=== PATIENT | male | born 1965 | race Caucasian/White ===

== ENCOUNTER 2017-02-19 22:40 | Observation (INO) | payer BC ==
--- NOTE | ~2017-02-19 | HP ---
History And Physical [place] [id number] [facility] [place]. [address] NAME: OLGA MONTANO : 61 STATUS : DIS Lillie PAT#: [id number] AGE: 51 ADM/REG DATE : 02/19/17 MR#: [id number] REPORT SERV DATE: 02/20/17 DICTATED BY: CALI HELMS DATE: 02/20/17 REPORT STATUS : Draft TRANSCRIBED BY: KAVITHA DATE: 02/20/17 DATE OF ADMISSION: 02/19/2017 CHIEF COMPLAINT: Chest pain. HISTORY OF PRESENT ILLNESS: This is a pleasant 51-year-old white male with a history of hypertension, hyperlipidemia, and reflux. He reports that over the past month, he has been out and biking with his son and doing well with that. He reports on Thursday he felt tightness in his chest in the afternoon while at work and not doing any particular activity. He reports immediately prior to the tightness in the chest, he had eaten spicy food for lunch including jalapeno pepper sandwich. He reports he has GERD and therefore he knew immediately to take Tums. He reports that that is the symptom. He then went for a bike ride soon after and he had no symptoms during the ride. Later on in the evening though, he then redeveloped the tightness in his chest. He had to sleep on pillows to help the chest pain. This continued all yesterday and he took Tums, which improved the symptoms, but did not fully resolve them. After consultation with his , he decided to present to the emergency room for further evaluation. He reports that he was working very hard strenuous activity on the bike the other day and again had no symptoms. No dyspnea on exertion. No palpitations. No diaphoresis. No syncope, presyncope, paroxysmal nocturnal dyspnea, or orthopnea. He has felt well overnight and has no further chest pain at this present time and no symptoms. PAST MEDICAL HISTORY: 1. Hypertension. 2. Hyperlipidemia. 3. Reflux. SOCIAL HISTORY: He is . He works full-time. He denies any tobacco, alcohol, or illicit drugs. FAMILY HISTORY: Noncontributory for CAD. ALLERGIES: NO KNOWN ALLERGIES. MEDICATIONS: Home medication list reviewed and is as follows, 1. Chlorthalidone 25 mg p.o. daily. 2. Lisinopril 20 mg p.o. at bedtime. 3. Pravastatin 40 mg p.o. at bedtime. REVIEW OF SYSTEMS: The patient denies ever having a cardiac evaluation. He does routinely see a PCP and recently went in for his annual examination on 02/05/2017, at which time, total cholesterol was slightly elevated at 203, HDL 60, triglycerides 134, LDL 117. He does tell me that he is not diligent at regularly taking the pravastatin as he should. The patient denies ever having issues with hypokalemia, but reports that his mother routinely has hypokalemia for many years. As above per HPI, all other systems reviewed and negative. History And Physical [address] [place]. [address] NAME: OLGA MONTANO : 61 STATUS : DIS Lillie PAT#: [id number] AGE: 51 ADM/REG DATE : 02/19/17 MR#: [id number] REPORT SERV DATE: 02/20/17 DICTATED BY: CALI HELMS DATE: 02/20/17 REPORT STATUS : Draft TRANSCRIBED BY: KAVITHA DATE: 02/20/17 PHYSICAL EXAMINATION: VITAL SIGNS: Oxygen saturation 95% on room air, weight 81.64 kg, temperature 98.1, pulse 56, respiratory rate 18, blood pressure 114/67. GENERAL: Well developed, well nourished. In no apparent distress. HEENT: Head normocephalic. No xanthelasma. Sclera clear, anicteric. Moist mucous membranes without pallor. No lymphadenopathy. No deficits noted. NECK: Trachea midline. Supple. No thyromegaly, JVD, or bruits. RESPIRATORY: Unlabored respirations. Breath sounds clear bilaterally to posterior auscultation. No wheezes, rhonchi or crackles. CARDIOVASCULAR: Regular rate and rhythm. No murmur, rub, or gallop appreciated. No chest wall tenderness to palpation. ABDOMEN: Soft, nontender, and nondistended. Active bowel sounds auscultated x4 quadrants. No organomegaly and no masses. No aortic bruit. EXTREMITIES: DP/PT and radial pulses 2+ bilaterally. No clubbing, cyanosis, or edema. SKIN: Warm, dry, intact. No rash. Normal turgor. MUSCULOSKELETAL: Moves all extremities in bed without difficulty. NEURO/PSYCH: Alert and oriented x3 with no acute distress. Affect appropriate to current situation. LABORATORY DATA: BMP: Sodium 133; potassium was 2.9, and in the ER, they gave him 80 mEq of potassium, it went up to 3.6, and it was again repleted, but interestingly went down to 3.2 this morning and he is again getting repletion for potassium; creatinine 1.04; glucose 97; calcium 9.1; magnesium 1.9. CBC: White blood cell count 6.9, hemoglobin 13.4, hematocrit 37.7, platelets 254. Troponin is less than 0.02 x2. STUDIES: Chest x-ray: Normal two-view chest x-ray. EKG: Personally interpreted, normal sinus rhythm, no ischemia. Telemetry: Sinus rhythm. ASSESSMENT AND PLAN: 1. Substernal/precordial chest pain. The patient with two negative troponins. EKGs are benign. I have ordered a TMO stress test given cardiac risk factors of hypertension and hyperlipidemia. This stress test was considered to be low risk with no ischemia and therefore the patient will be discharged home. He is to follow up with Dr. Bishop in 1-2 weeks. 2. Hypertension. The patient's blood pressure is well controlled when he checks in here and has been as well. However, I am concerned about the significant hypokalemia in a gentleman who reports he is going to continue to be very active with mountain biking and reports he gets sweaty with this high level of exertion. For this present time, I will discontinue the chlorthalidone as I suspect that this is contributing to his hypokalemia. We discussed initiating a second agent to replace the chlorthalidone versus increase in lisinopril. After further discussion, however, the patient has elected to choose the option to simply just take the lisinopril for one week until he follows up with Dr. Bishop in the office. In the interim, he will check his blood pressure daily, record, and bring in. I will defer to Dr. Bishop additional changes to blood pressure agents to replace the chlorthalidone. 3. Hyperlipidemia. We will continue his statin. Again, he has not been diligent taking History And Physical [address] [place]. [address] NAME: OLGA MONTANO: 61 STATUS : DIS Lillie PAT#: [id number] AGE: 51 ADM/REG DATE : 02/19/17 MR#: [id number] REPORT SERV DATE: 02/20/17 DICTATED BY: CALI HELMS DATE: 02/20/17 REPORT STATUS : Draft TRANSCRIBED BY: KAVITHA DATE: 02/20/17 his statin regularly and I have encouraged him to do so in addition to a low- cholesterol and fat diet. 4. Hypokalemia. We will stop the chlorthalidone. He will follow up with PCP in one-two weeks who can recheck his potassium level. He was again repleted this morning for that potassium of 3.2. 5. Gastroesophageal reflux disease. I advised him to avoid foods that trigger his reflux symptoms. I advised him to initially start taking Zantac one tablet p.o. daily before his largest meal of the day (30 minutes prior). This is as an initial step. Otherwise, I defer further evaluation and treatment to his one-week followup appointment with Dr. Bishop. The patient will be discharged to home at this time. LENA Cali Helms NP / [id number] CC: Maria De Jesus Pierre, MSN, [employer] MACHINE OPERATOR-BC Felix Bishop,
[2017-02-19 20:15] LABS: BASOPHILS 0.6 %; BASOPHILS ABSOLUTE 0.04 10/3/uL (0.0-0.16); EOSINOPHILS 1.9 %; EOSINOPHILS ABSOLUTE 0.13 10/3/uL (0.0-0.53); ER CBC TAT 0 Hrs 05 Mins; HEMATOCRIT 37.7 % (40.0-51.0); HEMOGLOBIN 13.4 g/dL (13.6-17.8); IMMATURE GRANULOCYTES 0.1 %; IMMATURE GRANULOCYTES ABSOLUTE 0.01 10/3/uL (0.0-0.11); LYMPHOCYTES 45.1 %; LYMPHOCYTES ABSOLUTE 3.11 10/3/uL (0.67-4.30); MANUAL DIFF NO %; MEAN CORPUS HGB CONC 35.5 g/dL (32.0-36.0); MEAN CORPUSCULAR HEMOGLOB 30.8 pg (26.0-34.0); MEAN CORPUSCULAR VOLUME 86.7 fL (80-100); MEAN PLATELET VOLUME 10.2 fL (9.2-13.0); MONOCYTES 7.3 %; PLATELET COUNT 254 10/3/uL (150-400); RBC DISTRIBUTION WIDTH 12.6 % (12.0-16.0); RED CELL COUNT 4.35 10/6/uL (4.7-6.1); WHITE BLOOD CELLS 6.9 10/3/uL (4.5-10.5)
[2017-02-19 20:24] LABS: INTERNATIONAL NORMAL RATI 1.1 UNITS (-); PARTIAL THROMBO TIME 27.3 SEC (22.5-37.2); PROTIME (NOT ORD) 14.3 SEC (12.0-14.5)
[2017-02-19 20:31] LABS: BUN (BLOOD UREA NITROGEN) 15 MG/DL (6-23); CALCIUM, SERUM 9.1 MG/DL (8.5-10.4); CHEST PAIN PROFILE TAT 0 Hrs 21 Mins; CHLORIDE, SERUM 94 MMOL/L (96-112); CO2 (CARBON DIOXIDE) 31 MMOL/L (24-34); CREATININE 1.04 MG/DL (0.70-1.30); GFR AFRICAN AMERICAN 95 ML/MIN (>=60); GFR NON AFRICAN AMERICAN 82 ML/MIN (>=60); GLUCOSE, SERUM 97 MG/DL (60-99); SODIUM, SERUM 133 MMOL/L (135-148); TROPONIN I <0.02 NG/ML (<0.05)
[2017-02-19 20:32] LABS: POTASSIUM, SERUM 2.9 MMOL/L (3.5-5.3)
[2017-02-19] MEDS ORDERED: HYGROTON 25 MG25 MG PO (22:52)
[2017-02-19] MEDS ORDERED: ZESTRIL20 MG PO (22:52)
[2017-02-19] MEDS ORDERED: PRAVACHOL40 MG PO (22:52)
[2017-02-20 00:59] LABS: TROPONIN I <0.02 NG/ML (<0.05)
[2017-02-20 01:40] LABS: POTASSIUM, SERUM 3.6 MMOL/L (3.5-5.3)
[2017-02-20] MEDS ORDERED: ZANTAC150 MG PO (11:33)
== END 2017-02-20 12:17 | disposition home or self-care (01) ==
LOC: ER 22:40 → CDU1 23:00
PROVIDERS: Clinical Nurse Specialist; Emergency Medicine
DX: R07.2 Precordial pain (principal); I10 Essential (primary) hypertension; E78.5 Hyperlipidemia, unspecified; K21.9 Gastro-esophageal reflux disease without esophagitis; E87.6 Hypokalemia; Z79.899 Other long term (current) drug therapy
CPT/HCPCS: 71020; 80048; 83735; 84132; 84484; 85025; 85610; 85730; 93005; 93017; 96374; 99285; A9270-GY; G0378